=== PATIENT | male | born 1950 ===

== ENCOUNTER 2018-07-07 10:08 | Emergency (ER) | payer OTHER ==
[~2018-07-07] VITALS: Ht 172.7 cm; Wt 95.3 kg
[2018-07-07] MEDS ORDERED: NORVASC5 MG PO (10:37)
== END 2018-07-07 14:57 | disposition home or self-care (01) ==
LOC: ER 10:08
DX: I16.0 Hypertensive urgency (principal); I10 Essential (primary) hypertension; R00.2 Palpitations

== ENCOUNTER 2018-07-26 08:35 | Outpatient (CLI) | payer OTHER ==
[~2018-07-26 08:35] MED LIST: NORVASC5 MG PO
== END 2018-07-26 10:27 | disposition home or self-care (01) ==
LOC: LAB 08:35
DX: E11.9 Type 2 diabetes mellitus without complications (principal); R31.9 Hematuria, unspecified; Z12.11 Encounter for screening for malignant neoplasm of colon; N39.0 Urinary tract infection, site not specified; D64.89 Other specified anemias; N40.0 Benign prostatic hyperplasia without lower urinary tract symptoms; E78.49 Other hyperlipidemia; E03.8 Other specified hypothyroidism; E55.9 Vitamin D deficiency, unspecified